=== PATIENT | female | born 1995 | race Caucasian/White ===

== ENCOUNTER 2016-08-15 16:09 | Emergency (ER) | payer OTHER ==
[2016-08-15 16:22] VITALS: BP 109/89; PULSE 104; RESP 17; TEMP 98.2; O2SAT 96
[2016-08-15] MEDS ORDERED: ONDANSETRON 4 MG/2 ML VIAL ONE (16:35)
--- NOTE | 2016-08-15 16:36 | CPEKG ---
Heart Rate: 94 RR Interval: 638 P-R Interval: 148 QRSD Interval: 76 QT Interval: 332 QTC Interval: 416 P Squires: 47 QRS Squires: 44 T Wave Squires: 26 EKG Severity - NORMAL ECG - EKG Impression: SINUS RHYTHM Electronically Signed By: Elana Munson 15-Aug-2016 20:44:33
--- NOTE | 2016-08-15 16:48 | EDPHY ---
H & P Time Seen by Provider: 08/15/16 16:30 HPI/ROS: CHIEF COMPLAINT: Syncope HISTORY OF PRESENT ILLNESS: Patient is a 20-year-old female with a history of dysrhythmia and numerous episodes of syncope who presents emergency department after having a syncopal episode around 3:15 p.m.. Patient states she has "fainted a couple dozen times." She currently has a loop recorder in place. She is followed by Dr. Kaye. She is scheduled to have an ablation on September 11. Patient states that she was in the grocery store when she fainted. She felt lightheaded and dizzy. Her mother found her on the ground. Post event she has no chest pain or shortness of breath. She is unsure if she struck her head but does have headache. She has no focal neurologic deficits. No visual change. No nausea or vomiting. REVIEW OF SYSTEMS: My complete review of systems is negative except as mentioned in the HPI. Past Medical/Surgical History: Includes dysrhythmia, syncope, asthma, depression, bipolar disorder, concussion Past surgical history: Implanted child monitor Social history: The patient does not smoke Smoking Status: Never smoked Physical Exam: Vitals noted. Tachycardia 104. GENERAL: Well-appearing, in no acute distress, alert. HEAD: No evidence of trauma. No hematoma. No laceration. EYES: PERRLA, EOMI, normal to inspection. ENT: Airway intact, no malocclusion, no hemotympanum, normal external examination. NECK: The trachea is midline. There is no crepitus. The C-spine is nontender. NEXUS criteria is negative (no midline tenderness, no distracting injury, no altered mental status, no recent alcohol use, no focal neurologic deficit). Patient has mild right lateral tenderness to palpation when she turns her head to the left. RESPIRATORY: Clear to auscultation bilaterally, no rales, rhonchi or wheezing. There is no crepitus or palpable rib fractures. CVS: Regular rate and rhythm, no rubs, murmurs, or gallops. ABDOMEN: Soft, nontender, nondistended, normal bowel sounds, no bruising or abrasions. Pelvis: Stable. No tenderness palpation. Hips full range of motion. BACK: Normal to inspection, no spinal tenderness, no spinal step off, no notable bruising or abrasions. SKIN: Normal color, warm, dry. No pallor or diaphoresis. EXTREMITIES: Right upper extremity: Patient has mild tenderness palpation over the dorsal of her right wrist. No deformity. No crepitus. Patient has mild posterior right shoulder tenderness palpation. No deformity. Neurovascular intact distally. Left upper extremity: Atraumatic. No visible signs of trauma. No tenderness palpation. Neurovascular intact distally. Right lower extremity: Atraumatic. No visible signs of trauma. No tenderness palpation. Neurovascular intact distally. Left lower extremity: Atraumatic. No visible signs of trauma. No tenderness palpation. Neurovascular intact distally. Atraumatic, neurovascularly intact distally in all extremities, pelvis is stable , hips with full range of motion, moves all extremities freely. NEURO/PSYCH: Higher functions: Alert and Oriented x3. Normal speech and cognition. Normal mood and affect. Cranial nerves: Normal as tested. Cerebellar: Normal as tested. Good finger to nose, good [id number], normal gait. Peripheral exam: Normal motor exam. Normal sensation. Constitutional: Initial Vital Signs Temperature (C) 36.8 C 08/15/16 16:19 Heart Rate 104 H 08/15/16 16:19 Respiratory Rate 17 08/15/16 16:19 Blood Pressure 109/89 H 08/15/16 16:19 O2 Sat (%) 96 08/15/16 16:19 O2 Delivery Mode Room Air Allergies/Adverse Reactions: adhesive Allergy (Verified 08/15/16 16:17) oxycodone HCl [From Percocet] Allergy (Verified 08/15/16 16:17) Penicillins Allergy (Verified 08/15/16 16:17) Home Medications: Medication Instructions Recorded Abilify 01/29/14 Wellbutrin Sr 01/29/14 LaMICtal 07/27/14 Ativan 08/15/16 Sonata 08/15/16 Medical Decision Making - Diagnostics Imaging Results: Imaging Impressions Shoulder X-Ray 08/15/16 16:51 Impression: There is no acute osseous abnormality. If there is progression of the patient's symptoms, MR imaging could be considered. RIGHT WRIST (4 Views, at 5:06 PM): Bone mineralization is preserved. There is no fracture, dislocation, marginal erosion, or soft tissue calcification. The navicular is intact. The radiocarpal and intercarpal alignments are maintained. The pronator fat pad is not displaced. Impression: There is no acute osseous abnormality identified. If there is high clinical concern regarding an occult carpal fracture, conservative management and short-term repeat radiographic follow-up in 7-14 days could be considered. Wrist X-Ray 08/15/16 16:51 Impression: There is no acute osseous abnormality. If there is progression of the patient's symptoms, MR imaging could be considered. RIGHT WRIST (4 Views, at 5:06 PM): Bone mineralization is preserved. There is no fracture, dislocation, marginal erosion, or soft tissue calcification. The navicular is intact. The radiocarpal and intercarpal alignments are maintained. The pronator fat pad is not displaced. Impression: There is no acute osseous abnormality identified. If there is high clinical concern regarding an occult carpal fracture, conservative management and short-term repeat radiographic follow-up in 7-14 days could be considered. ED Course/Re-evaluation: In the emergency department I discussed possible etiologies with the patient. I answered all her questions. She states the loop recorder is on file at [facility]. An IV was placed. Laboratory studies were ordered. Patient had EKG. I do not feel the patient needs a head CT at this time. She has no hematoma. She has a nonfocal neuro exam. She has had numerous CTs in the past. EKG shows normal sinus rhythm, normal rate, normal axis, normal intervals. There are no ST or T-wave abnormalities. EKG is normal as interpreted by me. I paged [facility] to evaluate her loop monitor and inform her of her syncopal episode. I discussed the case with [facility]. They stated that she will need to have her loop recorder interrogated locally. [employer] was contacted. I discussed the plan with the patient. No loop recordings noted with interrogation. I discussed the case with Dr. Colvin. He reviewed the case and pt's record. He states she has had syncope x 2.5 yrs. Recommends discharge and f/u with Dr. Kaye. Pt given warnings prior to leaving. Will return with worsening symptoms. Differential Diagnosis: My differential includes but is not limited to dysrhythmia, V-tach, ACS, acute ND, electrolyte abnormality, sugar abnormality, concussion, subarachnoid hemorrhage, subdural hematoma, epidural hematoma - Data Points Laboratory Results: Laboratory Results 08/15/16 16:40 08/15/16 16:40 08/15/16 08/15/16 08/15/16 16:40 16:40 16:40 WBC 8.44 10^3/uL 10^3/uL (3.80-9.50) RBC 5.00 10^6/uL 10^6/uL (4.18-5.33) Hgb 15.2 g/dL g/dL (12.6-16.3) Hct 44.4 % % (38.0-47.0) MCV 88.8 fL fL (81.5-99.8) MCH 30.4 pg pg (27.9-34.1) MCHC 34.2 g/dL g/dL (32.4-36.7) RDW 11.7 % % (11.5-15.2) Plt Count 291 10^3/uL 10^3/uL (150-400) MPV 9.8 fL fL (8.7-11.7) Neut % (Auto) 68.5 % % (39.3-74.2) Lymph % (Auto) 23.8 % % (15.0-45.0) [place] % (Auto) 6.2 % % (4.5-13.0) Eos % (Auto) 0.6 % % (0.6-7.6) Baso % (Auto) 0.4 % % (0.3-1.7) Nucleat RBC Rel Count 0.0 % % (0.0-0.2) Absolute Neuts (auto) 5.79 10^3/uL 10^3/uL (1.70-6.50) Absolute Lymphs (auto) 2.01 10^3/uL 10^3/uL (1.00-3.00) Absolute Monos (auto) 0.52 10^3/uL 10^3/uL (0.30-0.80) Absolute Eos (auto) 0.05 10^3/uL 10^3/uL (0.03-0.40) Absolute Basos (auto) 0.03 10^3/uL 10^3/uL (0.02-0.10) Absolute Nucleated RBC 0.00 10^3/uL 10^3/uL (0-0.01) Immature Gran % 0.5 % % (0.0-1.1) Immature Gran # 0.04 10^3/uL 10^3/uL (0.00-0.10) Sodium 141 mEq/L mEq/L (134-144) Potassium 3.8 mEq/L mEq/L (3.5-5.2) Chloride 105 mEq/L mEq/L (97-110) Carbon Dioxide 23 mEq/l mEq/l (22-31) Anion Gap 13 mEq/L mEq/L (8-16) BUN 11 mg/dL mg/dL (7-23) Creatinine 0.8 mg/dL mg/dL (0.6-1.0) Estimated GFR > 60 Glucose 109 mg/dL H mg/dL (70-100) Calcium 10.2 mg/dL mg/dL (8.5-10.4) Troponin I < 0.012 ng/mL ng/mL (0-0.034) Beta HCG, Qual NEGATIVE Departure - Departure Disposition: Home, Routine, Self-Care Clinical Impression: Syncope Qualifiers: Syncope type: unspecified Qualified Code(s): R55 - Syncope and collapse Condition: Good Instructions: Syncope (ED) Additional Instructions: Return with increasing fatigue, dizziness, lightheadedness, fainting or any other concerns. Keep your appointment to follow up with Dr. Kaye. Referrals: Maya Craft MD [Primary Care Provider] - 1-2 days without fail Moises Kaye MD [Medical Doctor] - 2-3 days, if not improved
[2016-08-15 17:01] LABS: % IMMATURE GRANULYOCYTES 0.5 % (0.0-1.1); ABSOLUTE IMMATURE GRANULOCYTES 0.04 10^3/uL (0.00-0.10); ADD DIFF? NO; ADD MORPH? NO; ADD SCAN? NO; ATYPICAL LYMPHOCYTE FLAG 30 (0-99); FRAGMENT RBC FLAG 0 (0-99); HEMATOCRIT 44.4 % (38.0-47.0); HEMOGLOBIN 15.2 g/dL (12.6-16.3); LEFT SHIFT FLG 0 (0-99); LIPEMIA HEMOLYSIS FLAG 90 (0-99); MEAN CELL HEMOGLOBIN 30.4 pg (27.9-34.1); MEAN CELL HEMOGLOBIN CONCENTR. 34.2 g/dL (32.4-36.7); MEAN CELL VOLUME 88.8 fL (81.5-99.8); MEAN PLATELET VOLUME 9.8 fL (8.7-11.7); PLATELET CLUMPS FLAG 0 (0-99); PLATELET COUNT 291 10^3/uL (150-400); RED CELL DISTRIBUTION WIDTH 11.7 % (11.5-15.2)
[2016-08-15 17:13] LABS: ANION GAP 13 mEq/L (8-16); CALCIUM 10.2 mg/dL (8.5-10.4); CARBON DIOXIDE 23 mEq/l (22-31); CHLORIDE 105 mEq/L (97-110); CREATININE 0.8 mg/dL (0.6-1.0); GLOMERULAR FILTRATION RATE > 60; GLUCOSE 109 mg/dL (70-100); POTASSIUM 3.8 mEq/L (3.5-5.2); SODIUM 141 mEq/L (134-144)
[2016-08-15 17:25] LABS: TROPONIN I < 0.012 ng/mL (0-0.034)
== END 2016-08-15 18:42 | disposition home or self-care (01) ==
DX: R55 Syncope and collapse (principal)
CPT/HCPCS: J2405

== ENCOUNTER → 2016-09-11 | Day surgery (SDC) | payer OTHER ==
[~2016-09-11] MED LIST: ACETAMINOPHEN 325 MG TAB PO PRN; ATROPINE SULFATE 1 MG/10 ML SYR ONE; BUPIVACAINE 0.5% 30 ML SDV ONE; HEPARIN 10,000 UNIT/10 ML MDV ONE; ISOPROTERENOL HCL/D5W 0.2 MG/50 ML BAG IV ONE; LIDOCAINE 1% 300 MG/30 ML SDV ONE; MIDAZOLAM 2 MG/2 ML VIAL IVP ONE; MIDAZOLAM 2 MG/2 ML VIAL ONE; NS 1,000 ML IV ONE; ONDANSETRON 4 MG/2 ML VIAL IVP PRN; PROPOFOL 200 MG/20 ML VIAL ONE; ROCURONIUM 100 MG/10 ML VIAL ONE; fentaNYL 100 MCG/2 ML INJ ONE
--- NOTE | 2016-09-11 07:16 | CPEKG ---
Heart Rate: 84 RR Interval: 714 P-R Interval: 144 QRSD Interval: 74 QT Interval: 360 QTC Interval: 426 P [place]: 54 QRS [place]: 53 T Wave [place]: 25 EKG Severity - NORMAL ECG - EKG Impression: SINUS RHYTHM Electronically Signed By: Moises Kaye 11-Sep-2016 08:03:15
[2016-09-11 07:36] LABS: % IMMATURE GRANULYOCYTES 0.3 % (0.0-1.1); ABSOLUTE IMMATURE GRANULOCYTES 0.02 10^3/uL (0.00-0.10); ADD DIFF? NO; ADD MORPH? NO; ADD SCAN? NO; ATYPICAL LYMPHOCYTE FLAG 20 (0-99); FRAGMENT RBC FLAG 0 (0-99); HEMATOCRIT 41.2 % (38.0-47.0); LEFT SHIFT FLG 0 (0-99); LIPEMIA HEMOLYSIS FLAG 90 (0-99); MEAN CELL HEMOGLOBIN 30.5 pg (27.9-34.1); MEAN CELL VOLUME 89.8 fL (81.5-99.8); MEAN PLATELET VOLUME 9.7 fL (8.7-11.7); PLATELET CLUMPS FLAG 10 (0-99); PLATELET COUNT 246 10^3/uL (150-400); RED BLOOD CELL COUNT 4.59 10^6/uL (4.18-5.33); RED CELL DISTRIBUTION WIDTH 11.6 % (11.5-15.2)
[2016-09-11 07:49] LABS: APTT 29.9 SEC (23.0-38.0); INR 1.16 (0.83-1.16); PROTIME(PATIENT) 14.8 SEC (12.0-15.0)
[2016-09-11 07:52] LABS: ANION GAP 13 mEq/L (8-16); CALCIUM 9.4 mg/dL (8.5-10.4); CARBON DIOXIDE 22 mEq/l (22-31); CHLORIDE 105 mEq/L (97-110); GLOMERULAR FILTRATION RATE > 60; GLUCOSE 89 mg/dL (70-100); POTASSIUM 3.7 mEq/L (3.5-5.2); SODIUM 140 mEq/L (134-144)
--- NOTE | 2016-09-11 07:52 | PDANEPAE ---
ANE History of Present Illness paroxysmal SVT causing fainting/lightheadedness ANE Past Medical History - Cardiovascular History Hx Hypertension: No Hx Arrhythmias: No Hx Coronary Artery / Peripheral Vascular Disease: No Hx CHF / Valvular Disease: No - Pulmonary History Hx COPD: No Hx Asthma/Reactive Airway Disease: No Hx Recent Upper Respiratory Infection: No Hx Oxygen in Use at Home: No Hx Sleep Apnea: No Pulmonary History Comment: COLD PART April. EXRCISE INDUCED ASTHMA NONE SINCE MOVING HER FROM [place] 8 MONTHS. - Neurologic History Hx Cerebrovascular Accident: No Hx Seizures: No Hx Dementia: No - Endocrine History Hx Diabetes: No Endocrine History Comment: NATHAN - Renal History Hx Renal Disorders: No - Liver History Hx Hepatic Disorders: No - Neurological & Psychiatric Hx Hx Neurological and Psychiatric Disorders: Yes Neurological / Psychiatric History Comment: BIPOLAR/DEPRESSION. HEADACHES WITH MENSES. CONCUSSION 2009 - Cancer History Hx Cancer: No - Congenital Disorder History Hx Congenital Disorders: No - GI History Hx Gastrointestinal Disorders: No - Chronic Pain History Chronic Pain: No - Surgical History Prior Surgeries: DENTAL EXT IN OFFICE BECAME COMBATIVE ANE Review of Systems Review of systems is: negative - Exercise capacity Exercise capacity: >=4 METS ANE Patient History - Allergies Allergies/Adverse Reactions: adhesive Allergy (Verified 08/15/16 16:17) oxycodone HCl [From Percocet] Allergy (Verified 08/15/16 16:17) Penicillins Allergy (Verified 08/15/16 16:17) - Home Medications Home Medications: Abilify 01/29/14 [Last Taken Unknown] Wellbutrin Sr 01/29/14 [Last Taken Unknown] LaMICtal 07/27/14 [Last Taken Unknown] Ativan 08/15/16 [Last Taken Unknown] Sonata 08/15/16 [Last Taken Unknown] - Anes Hx Anes Hx: no prior problems - Smoking Hx Smoking Status: Former smoker - Family Anes Hx Family Anes Hx: none ANE Labs/Vital Signs - Labs Result Diagrams: 09/11/16 07:22 09/11/16 07:22 - Vital Signs Height: 160 cm Weight: 61.2 kg ANE Physical Exam - Airway Neck exam: FROM Mallampati Score: Class 3 Mouth exam: small mouth opening (2/2 TMJ) - Pulmonary Pulmonary: no respiratory distress - Cardiovascular Cardiovascular: regular rate and rhythym - ASA Status ASA Status: II ANE Anesthesia Plan Anesthesia Plan: general endotracheal anesthesia
--- NOTE | 2016-09-11 10:26 | EPPROC ---
Electrophysiology Procedure Note: DIAGNOSTIC ELECTROPHYSIOLOGIC STUDY INDICATION: Syncope HR of up to 200 bpm noted on LINQ monitor PROCEDURE: Catheters & Anesthesia: The patient arrived in the Electrophysiology Laboratory in the fasting state. The right clavicular region, right groin, & left groin area were prepped & draped in the usual sterile manner. Anesthesiologist administered general anesthesia. Appropriate non-invasive blood pressure, pulse oximetry & end- tidal CO2 monitoring was established. All catheters were placed percutaneously using the modified Seldinger technique , and advanced into position under fluoroscopic guidance. One #6 [place]an hexapolar non-deflectable electrode catheter was inserted into the right atrial appendage via the left femoral vein (2mm spacing; except the proximal ring which was 25cm from the tip used for unipolar recordings). One #7 [place]an deflectable octapolar electrode catheter was advanced to the His-bundle position via the right femoral vein (2mm spacing One #7 [place] deflectable catheter with 10 pairs of electrodes was placed via the left femoral vein into the coronary sinus. Programmed stimulation was performed from the right atrium, right ventricle and coronary sinus (left atrium). Parahisian pacing demonstrated VA block. Heparin was administere. No sustained reentrant tachycardia was induced during programmed stimulation at baseline or during graded doses of isoproterenol up to 4 mcg/min. The catheters were removed. The patient was transferred to the cardiovascular holding area in stable condition. Vascular access sheaths were removed in the holding area. There were no apparent complications. Results: A. Spontaneous Intervals: SCL 630 ms AH 55 ms HV 40 ms B. Antegrade AV rosendo function (decremental pacing) FPERP 320 ms WBB CL 310 ms C. Retrograde AV rosendo function (decremental pacing) VA block CONCLUSIONS 1. Normal sinus and AV node function. 2. No evidence of accesory AV pathway presence. 3. No sustained arrhythmias induced. 4. No apparent complications. Patient Problems: Problems Problem Status Onset Syncope Acute
--- NOTE | 2016-09-11 10:45 | POSTANESTH ---
Post Anesthetic Evaluation Cardiovascular Status: Normal, Stable Respiratory Status: Normal, Stable Level of Consciousness/Mental Status: Can Participate in Eval Pain Control: Adequate, Prn Tx Ordered Nausea/Vomiting Control: Adequate, Prn Tx Ordered Complications Possibly Related to Anesthesia: None Noted
--- NOTE | 2016-09-11 12:11 | CPEKG ---
Heart Rate: 67 RR Interval: 896 P-R Interval: 152 QRSD Interval: 72 QT Interval: 396 QTC Interval: 418 P [place]: 43 QRS [place]: 58 T Wave [place]: 52 EKG Severity - NORMAL ECG - EKG Impression: SINUS RHYTHM Electronically Signed By: Moises Kaye 11-Sep-2016 16:51:36
== END | disposition home or self-care (01) ==
LOC: FCATH 06:56
PROVIDERS: ATTEND Internal Medicine Cardiovascular Disease
PROC: 02H63MZ Insertion of Cardiac Lead into Right Atrium, Percutaneous Approach (ICD-10-PCS; principal; 2016-09-11)
PROC: 5A1213Z Performance of Cardiac Pacing, Intermittent (ICD-10-PCS; principal; 2016-09-11)
PROC: 4A023FZ Measurement of Cardiac Rhythm, Percutaneous Approach (ICD-10-PCS; principal; 2016-09-11)
DX: I47.1 Supraventricular tachycardia (principal)
CPT/HCPCS: 93005; 93620; 93621; 93623; C1730; C1731; J0461; J1644; J2250; J2704; J3010

== ENCOUNTER 2016-09-15 19:57 | Emergency (ER) | payer OTHER ==
--- NOTE | 2016-09-15 20:18 | EDPHY ---
H & P Stated Complaint: bilateral groin bruising/pain, worse of L, negative cardiac ablation 09/11 - Personal History LMP (Females 10-55): 8-14 Days Ago Current Tetanus/Diphtheria Vaccine: Yes Tetanus Vaccine Date: 2013 - Medical/Surgical History Hx Asthma: Yes Hx Chronic Respiratory Disease: No Hx Diabetes: No Hx Cardiac Disease: Yes Hx Renal Disease: No Hx Cirrhosis: No Hx Alcoholism: No Hx HIV/AIDS: No Hx Splenectomy or Spleen Trauma: No Other PMH: negative cardiac ablation on 09/11/16. Excercise induced asthma. depression. bipolar. "FAINTING SPELLS"/arrythmia/implanted cardiac cath technologist - Social History Smoking Status: Former smoker Time Seen by Provider: 09/15/16 20:18 Constitutional: Initial Vital Signs Temperature (C) 36.8 C 09/15/16 20:08 Heart Rate 80 09/15/16 20:08 Respiratory Rate 16 09/15/16 20:08 Blood Pressure 103/67 09/15/16 20:08 O2 Sat (%) 95 09/15/16 20:08 O2 Delivery Mode Room Air Allergies/Adverse Reactions: adhesive Allergy (Verified 08/15/16 16:17) oxycodone HCl [From Percocet] Allergy (Verified 08/15/16 16:17) Penicillins Allergy (Verified 08/15/16 16:17) Home Medications: Medication Instructions Recorded ARIPiprazole [Abilify 2 mg (*)] 8 mg PO HS 01/29/14 buPROPion XL [Wellbutrin Xl] 150 mg PO DAILY 01/29/14 lamoTRIgine [LamICTAL] 75 mg PO HS 07/27/14 LORazepam [Ativan (*)] 0.5 mg PO DAILY PRN 08/15/16 Zaleplon [Sonata] 10 mg PO HS PRN 08/15/16 Metoprolol Tartrate 12.5 mg PO BID 09/11/16 Medical Decision Making ED Course/Re-evaluation: CHIEF COMPLAINT: Pain at surgical site HISTORY OF PRESENT ILLNESS: The patient is a 20 y/o female complaining of left inguinal and lower abdominal pain following an unsuccessful cardiac ablation attempt on 09/11/16. Her pain was initially mild, but became acutely severe over the last 2 hours and is located directly over her left inguinal incision site. She denies fever, vomiting, dyspnea, chest pain, leg pain or swelling, or other worsening of condition. REVIEW OF SYSTEMS: A 10 point review of systems was performed and is negative with the exception of the elements mentioned in the history of present illness. PHYSICAL EXAM: HR, BP, O2 Sat, RR. Temp noted General Appearance: Alert, well hydrated, appropriate, and non-toxic appearing. Head: Atraumatic without scalp tenderness or obvious injury Eyes: Pupils equal, round, reactive to light and accommodation, EOMI, no trauma , no injection. Nose: Atraumatic, no rhinorrhea, clear. Throat: There is no erythema or exudates, no lesions, normal tonsils, mucus membranes moist. Neck: Supple, nontender, no lymphadenopathy. Respiratory: No retractions, no distress, no wheezes, and no accessory muscle use. Lungs are clear to auscultation bilaterally. Cardiovascular: Regular rate and rhythm, no murmurs, rubs, or gallops. Good capillary refill all extremities. Gastrointestinal: Abdomen is soft, mild LLQ tenderness, non-distended, no masses, no rebound, no guarding, no peritoneal signs. Musculoskeletal: Normal active ROM of all extremities, atraumatic. Neurological: Alert, appropriate, and interactive. Nonfocal neuro exam. Skin: Clean, dry, and intact surgical site around left inguinal region with moderate point tenderness and bruising. No rashes, good turgor, no nodules on palpation. Past medical history: SVT Past surgical history: unsuccessful cardiac ablation 09/11/16 Family history: noncontributory Social history: Mother at bedside DIFFERENTIAL DIAGNOSIS: The differential diagnosis for the patient's abdominal pain included but was not limited to post-op complication, retroperitoneal bleed , pseudoaneurysm, ovarian cyst, pelvic inflammatory disease, ovarian torsion, urinary tract infection, ectopic , cholecystitis, and appendicitis. MEDICAL DECISION MAKING: This is a 20 y/o female with a history of SVT who presents with post-op left inguinal pain at the site of her catheterization. No other symptoms or evidence of systemic illness. Plan for US to rule out pseudoaneurysm. Otherwise will be discharged home with script for Vicodin and normal post-op follow up. 2100: Patient care signed out to Dr. Lees pending abdominal US results. ( Rodríguez Lutz) [id number]: I did re-evaluate this patient this time she is resting comfortably no acute distress. Pain is controlled at this time. No fever. Her groin site does not appear infected. I did evaluate her she has a warm lower extremity. There is no redness or pus. The ultrasound was called to me by Dr. Lopez There is no pseudoaneurysm there is no fluid collection there is no significant hematoma. I will allow the patient to go home. (YoanaNikhil) - Data Points Medications Given: Discontinued Medications Hydrocodone Bitart/Acetaminophen (Sarepta 5/325) 1 tab PO EDNOW ONE Stop: 09/15/16 22:30 Last Admin: 09/15/16 22:40 Dose: 1 tab Ibuprofen (Motrin) 600 mg PO EDNOW ONE Stop: 09/15/16 20:42 Last Admin: 09/15/16 20:51 Dose: 600 mg Departure - Departure Disposition: Home, Routine, Self-Care Clinical Impression: Post-op pain Condition: Good Instructions: Hydrocodone/Acetaminophen (By mouth) Additional Instructions: 1. Take 600mg ibuprofen every 6-8 hours as needed for pain. 2. Take Vicodin as prescribed when needed for severe pain not controlled with ibuprofen. 3. Follow up with your thermal engineer as planned. 4. Return to the ED for severe pain, fever, redness or warmth at incision site, or other worsening of condition. Referrals: Maya Craft MD [Primary Care Provider] - As per Instructions Report Scribed for: Rodríguez Lutz Report Scribed by: Ceci Colunga Date of Report: 09/15/16 Time of Report: 21:03
[2016-09-15] MEDS ORDERED: IBUPROFEN 600 MG TAB PO ONE (20:41)
[2016-09-15] MEDS ORDERED: HYDROCOD/APAP 5/325 PREPACK#6 BTL TAKEHOME ONE ×2 (21:09→23:17)
[2016-09-15] MEDS ORDERED: HYDROCODONE/APAP 5/325 TAB PO ONE (22:29)
[2016-09-15 23:50] VITALS: BP 84/59; PULSE 72; RESP 18; TEMP 98.1; O2SAT 97
== END 2016-09-15 23:52 | disposition home or self-care (01) ==
DX: G89.18 Other acute postprocedural pain (principal); J45.909 Unspecified asthma, uncomplicated; Z87.891 Personal history of nicotine dependence

== ENCOUNTER 2016-11-29 22:28 | Emergency (ER) | payer OTHER ==
[2016-11-29 22:44] VITALS: RESP 18
[2016-11-29] MEDS ORDERED: DEXAMETHASONE 4 MG TAB PO ONE (23:20)
[2016-11-29] MEDS ORDERED: ONDANSETRON DISINTEGRATING 4 MG TAB PO ONE (23:20)
--- NOTE | 2016-11-29 23:24 | EDPHY ---
H & P Stated Complaint: SORE THROAT AND NAUSEA VOMITTING Time Seen by Provider: 11/29/16 23:21 HPI/ROS: HPI: This is a 21-year-old female who presents with Chief Complaint: Sore throat Location: Throat Quality: Sore Duration: 2 days Signs and Symptoms: No fever, no chills, no body aches, + sore throat,+ nausea , + vomiting after coughing, no abdominal pain, no vaginal discharge, no vaginal bleeding, no wheezing Timing: Constant Severity: Moderate Context: Patient presents with a constellation of symptoms most notably is her sore throat and hoarse voice for the last 2 days. She reports that when she tries to drink water she vomits it up but denies any abdominal pain/pelvic pain/ vaginal discharge/vaginal bleeding. Patient has an IUD and last menstrual period was approximately 3 weeks ago. She denies dysuria. She has had a poor appetite and decreased energy. She has not tried any [id number] medications Modifying Factors: Fluids. Comment: ROS: see HPI Constitutional: No fever, no chills, no weight loss Eyes: No blurred vision Respiratory: No shortness of breath, no cough Cardiovascular: No chest pain Gastrointestinal: + nausea, + vomiting, no diarrhea Genitourinary: No dysuria Extremities: No myalgias Neurologic: No weakness, no numbness Skin: No rashes Hematologic: No bruising, no bleeding MEDICAL/SURGICAL/SOCIAL HISTORY: Medical history: negative cardiac ablation on 09/11/16 Excercise induced asthma depression bipolar "FAINTING SPELLS"/arrythmia Surgical history: implanted youth nutritional monitor Social history: student CONSTITUTIONAL: Well-developed well-nourished young adult white female, awake and alert, no obvious distress HEENT: Atraumatic and normocephalic, PERRL, EOMI. Tympanic membranes clear. Oropharynx clear, uvula midline, tonsillar hypertrophy, voice is hoarse, no exudate and moist pink mucosa. Airway patent. No lymphadenopathy. No meningismus. Cardiovascular: Normal S1/S2, regular rate, regular rhythm, without murmur rub or gallop. PULMONARY/CHEST: Symmetrical and nontender. Clear to auscultation bilaterally. Good air movement. No accessory muscle usage. ABDOMEN: Soft, nondistended, nontender, no rebound, no guarding, no peritoneal signs, no masses or organomegaly. No CVAT. EXTREMITIES: 2/2 pulses, no deformities, no clubbing, no cyanosis or edema. NEUROLOGICAL: no focal neuro deficits. GCS 15. SKIN: Warm and dry, no erythema. no rash. Good capillary refill. Source: Patient Exam Limitations: No limitations - Personal History LMP (Females 10-55): 15-21 Days Ago Current Tetanus/Diphtheria Vaccine: Yes Current Tetanus Diphtheria and Acellular Pertussis (TDAP): Yes Tetanus Vaccine Date: 2013 - Medical/Surgical History Hx Asthma: Yes Hx Chronic Respiratory Disease: No Hx Diabetes: No Hx Cardiac Disease: Yes Hx Renal Disease: No Hx Cirrhosis: No Hx Alcoholism: No Hx HIV/AIDS: No Hx Splenectomy or Spleen Trauma: No Other PMH: negative cardiac ablation on 09/11/16. Excercise induced asthma. depression. bipolar. "FAINTING SPELLS"/arrythmia/implanted youth nutritional monitor - Social History Smoking Status: Former smoker Constitutional: Initial Vital Signs Temperature (C) 36.6 C 11/29/16 22:43 Heart Rate 78 11/29/16 22:43 Respiratory Rate 18 11/29/16 22:43 Blood Pressure 112/71 11/29/16 22:43 O2 Sat (%) 96 11/29/16 22:43 O2 Delivery Mode Room Air Allergies/Adverse Reactions: adhesive Allergy (Verified 11/29/16 22:44) oxycodone HCl [From Percocet] Allergy (Verified 11/29/16 22:44) Penicillins Allergy (Verified 11/29/16 22:44) Home Medications: Medication Instructions Recorded ARIPiprazole [Abilify 2 mg (*)] 8 mg PO HS 01/29/14 buPROPion XL [Wellbutrin Xl] 150 mg PO DAILY 01/29/14 lamoTRIgine [LamICTAL] 75 mg PO HS 07/27/14 LORazepam [Ativan (*)] 0.5 mg PO DAILY PRN 08/15/16 Zaleplon [Sonata] 10 mg PO HS PRN 08/15/16 Ondansetron Odt [Zofran Odt 4 mg 4 mg PO Q4 PRN #12 tab 11/29/16 (*)] Medical Decision Making ED Course/Re-evaluation: Strep test oral medications ordered Abdominal exam is benign and no imaging is indicated. Afebrile No signs of tonsillar abscess/airway compromise/hypoxia/wheezing/sinusitis/ meningitis Given p.o. Decadron and p.o. Zofran. Strep is negative Differential Diagnosis: Differential diagnosis includes but is not limited to upper respiratory infection, pharyngitis, strep pharyngitis, influenza, mononucleosis. - Data Points Laboratory Results: 11/29/16 11/29/16 Unknown 23:18 Group A Strep Screen NEGATIVE (NEGATIVE) Group A Strep DNA Pending Departure - Departure Disposition: Home, Routine, Self-Care Clinical Impression: Viral syndrome Condition: Good Instructions: Viral Syndrome (ED) Additional Instructions: Your strep test was negative today. It appears you have a viral illness. Please drink plenty of fluids to prevent dehydration. Eat a bland diet over the next 48 hours and advance as tolerated. Rest as much as possible. Referrals: Maya Craft MD [Primary Care Provider] - As per Instructions Prescriptions: Ondansetron Odt [Zofran Odt 4 mg (*)] 4 mg PO Q4 PRN #12 tab PRN Reason: Nausea/Vomiting, Use 1st
[2016-11-29] MEDS ORDERED: ONDANSETRON 4MG PREPACK#2 BTL TAKEHOME ONE (23:25)
[2016-11-30 00:26] VITALS: BP 100/67; PULSE 66; TEMP 98.1; O2SAT 95
== END 2016-11-30 00:26 | disposition home or self-care (01) ==
DX: B34.9 Viral infection, unspecified (principal); J45.909 Unspecified asthma, uncomplicated; Z87.891 Personal history of nicotine dependence

== ENCOUNTER 2016-12-20 07:14 | Day surgery (SDC) | payer OTHER ==
[2016-12-20] MEDS ORDERED: NS 1,000 ML IV ONE (07:16)
--- NOTE | 2016-12-20 07:34 | CPEKG ---
Heart Rate: 62 RR Interval: 968 P-R Interval: 136 QRSD Interval: 76 QT Interval: 388 QTC Interval: 394 P [place]: -29 QRS [place]: 45 T Wave [place]: 43 EKG Severity - NORMAL ECG - EKG Impression: SINUS RHYTHM Electronically Signed By: Moises Kaye 20-Dec-2016 17:17:18
[2016-12-20 07:42] LABS: % IMMATURE GRANULYOCYTES 0.3 % (0.0-1.1); ABSOLUTE IMMATURE GRANULOCYTES 0.02 10^3/uL (0.00-0.10); ADD DIFF? NO; ADD MORPH? NO; ADD SCAN? NO; ATYPICAL LYMPHOCYTE FLAG 20 (0-99); FRAGMENT RBC FLAG 0 (0-99); HEMATOCRIT 43.6 % (38.0-47.0); LEFT SHIFT FLG 0 (0-99); LIPEMIA HEMOLYSIS FLAG 90 (0-99); MEAN CELL HEMOGLOBIN CONCENTR. 34.4 g/dL (32.4-36.7); MEAN CELL VOLUME 90.1 fL (81.5-99.8); MEAN PLATELET VOLUME 9.5 fL (8.7-11.7); PLATELET CLUMPS FLAG 0 (0-99); PLATELET COUNT 245 10^3/uL (150-400); RED BLOOD CELL COUNT 4.84 10^6/uL (4.18-5.33); RED CELL DISTRIBUTION WIDTH 11.8 % (11.5-15.2)
[2016-12-20 07:54] LABS: INR 1.12 (0.83-1.16); PROTIME(PATIENT) 14.3 SEC (12.0-15.0)
[2016-12-20 07:55] LABS: APTT 29.2 SEC (23.0-38.0)
[2016-12-20 08:02] LABS: ANION GAP 11 mEq/L (8-16); CALCIUM 9.6 mg/dL (8.5-10.4); CARBON DIOXIDE 21 mEq/l (22-31); CHLORIDE 107 mEq/L (97-110); CREATININE 0.9 mg/dL (0.6-1.0); GLOMERULAR FILTRATION RATE > 60; GLUCOSE 83 mg/dL (70-100); MAGNESIUM 1.9 mg/dL (1.6-2.3); POTASSIUM 3.9 mEq/L (3.5-5.2); SODIUM 139 mEq/L (134-144)
[2016-12-20] MEDS ORDERED: LIDOCAINE 1% 300 MG/30 ML SDV ONE (08:07)
[2016-12-20] MEDS ORDERED: BUPIVACAINE 0.5% 30 ML SDV ONE (08:08)
[2016-12-20] MEDS ORDERED: ISOPROTERENOL HCL/D5W 0.2 MG/50 ML BAG IV ONE (08:08)
[2016-12-20] MEDS ORDERED: HEPARIN 10,000 UNIT/10 ML MDV ONE (08:08)
--- NOTE | 2016-12-20 08:08 | PDPROPOC ---
Sedation Plan of Care ASA Classification: ASA 1 Planned drugs: fentanyl, midazolam Mallampati Score: Class 1 Mallampati Reference Image: Patient passed 3-3-2 rule?: Yes
--- NOTE | 2016-12-20 08:08 | PDHPUP ---
History & Physical Update H&P update statement: This history and physical update is based on an assessment of the patient which was completed after admission or registration (within 24 hours), but prior to the surgery/procedure.
[2016-12-20] MEDS ORDERED: MIDAZOLAM 2 MG/2 ML VIAL ONE (10:25)
[2016-12-20] MEDS ORDERED: IBUPROFEN 200 MG TAB PO PRN (10:34)
[2016-12-20] MEDS ORDERED: ZALEPLON 10 MG PO PRN (10:34)
[2016-12-20] MEDS ORDERED: LORazepam 0.5 MG TAB PO PRN (10:34)
[2016-12-20] MEDS ORDERED: NON-FORMULARY NEW DRUG (Levonorgestrel [Mirena] 1 EACH) IY SCH (10:45)
--- NOTE | 2016-12-20 18:40 | EPPROC ---
Electrophysiology Procedure Note: DIAGNOSTIC ELECTROPHYSIOLOGIC STUDY PROCEDURE: Catheters & Anesthesia: The patient arrived in the Electrophysiology Laboratory in the fasting state. The right clavicular region, right groin, & left groin area were prepped & draped in the usual sterile manner. No sedation was administered, procedure done with local anesthetic only. Appropriate non-invasive blood pressure, pulse oximetry & end-tidal CO2 monitoring was established. All catheters were placed percutaneously using the modified Seldinger technique , and advanced into position under fluoroscopic guidance. One #7 [place] deflectable octapolar electrode catheter was advanced to the His-bundle position via the left femoral vein (2mm spacing). One #7 [place] deflectable catheter with 10 pairs of electrodes was placed via the right femoral vein into the coronary sinus. Programmed stimulation was performed from the right atrium, right ventricle and coronary sinus (left atrium). Parahisian pacing demonstrated VA block. There was no ventricular preexcitation. SCL 740 ms AH 65 ms HV 40 ms AV node WBB 310 ms, no antegrade slow pathway Retrograde AV node VA block No sustained reentrant tachycardia was induced during programmed stimulation at baseline or during graded doses of isoproterenol up to 4 mcg/min. The catheters were removed. The patient was transferred to the cardiovascular holding area in stable condition. There were no apparent complications. CONCLUSIONS 1. Normal sinus and AV node function. 2. No evidence of accesory AV pathway presence. 3. No sustained arrhythmias induced. 4. No apparent complications. RECOMMENDATIONS: Start ivabradine for inappropriate sinus tachycardia. d.w. patient, boyfriend and mother. Patient wants to think about it, will call my nurse if she decides to start Patient Problems: Problems Problem Status Onset Syncope Acute
[2016-12-20] MEDS ORDERED: ARIPiprazole 2 MG TAB PO SCH (21:00)
[2016-12-20] MEDS ORDERED: lamoTRIgine 25 MG TAB PO SCH (21:00)
[2016-12-21] MEDS ORDERED: buPROPion XL 150 MG TAB PO SCH (09:00)
== END 2016-12-20 16:10 | disposition home or self-care (01) ==
LOC: FCATH 07:14
PROVIDERS: ATTEND Internal Medicine Cardiovascular Disease
PROC: 4A023FZ Measurement of Cardiac Rhythm, Percutaneous Approach (ICD-10-PCS; principal; 2016-12-20)
PROC: 3E033KZ Introduction of Other Diagnostic Substance into Peripheral Vein, Percutaneous Approach (ICD-10-PCS; principal; 2016-12-20)
DX: R00.2 Palpitations (principal); R00.0 Tachycardia, unspecified; R55 Syncope and collapse
CPT/HCPCS: C1731; J1644; J2250

== ENCOUNTER 2017-01-03 22:04 | Emergency (ER) | payer OTHER ==
[2017-01-03 22:14] VITALS: RESP 18; O2SAT 94
--- NOTE | 2017-01-03 22:28 | CPEKG ---
Heart Rate: 101 RR Interval: 594 P-R Interval: 140 QRSD Interval: 72 QT Interval: 316 QTC Interval: 410 P [place]: 53 QRS [place]: 61 T Wave [place]: 0 EKG Severity - BORDERLINE ECG - EKG Impression: SINUS TACHYCARDIA EKG Impression: BORDERLINE T ABNORMALITIES, ANTERIOR LEADS Electronically Signed By: Clive Davis 04-Jan-2017 06:38:30
--- NOTE | 2017-01-03 22:40 | EDPHY ---
H & P Stated Complaint: FEVER SOB, CHEST PAIN S/P SURGERY? 2 WKS AGO Time Seen by Provider: 01/03/17 22:25 HPI/ROS: Chief Complaint: Fever, body aches, nausea vomiting HPI: 21-year-old woman started having for fever, nausea, vomiting and body aches today 10 o'clock this morning. She did take a Zofran. She did have some associated chest tightness and shortness of breath, but feels that this may have been associated with some anxiety. She had a cardiac ablation done [address] Kaye. She states that she has felt completely normal up until today since that procedure. No cough. No diarrhea. No abdominal pain. States she had a catheter placed in her groin which has been healing without any problems. No numbness or weakness. No headache. She states she measured temperature to 102 at home. Has not taken any Tylenol or ibuprofen. ROS: 10 point Review of Systems is negative except as noted in the HPI. PMH: Bipolar disorder, asthma, syncope Social History: No smoking, occasional alcohol, occasional marijuana Family History: non-contributory Physical Exam: Gen: Awake, Alert, No Distress HEENT: Nose: no rhinorrhea Eyes: PERRLA, EOMI Mouth: Moist mucosa Neck: Supple, no JVD Chest: nontender, lungs clear to auscultation Heart: S1, S2 normal, no murmur Abd: Soft, non-tender, no guarding Back: no CVA tenderness, no midline tenderness Ext: no edema, non-tender Skin: no rash Neuro: CN II-XII intact, Sensation grossly intact, Strength 5/5 in bilateral upper and lower extremities - Personal History LMP (Females 10-55): IUD In Place Current Tetanus/Diphtheria Vaccine: Yes Current Tetanus Diphtheria and Acellular Pertussis (TDAP): Yes Tetanus Vaccine Date: 2013 - Medical/Surgical History Hx Asthma: Yes Hx Chronic Respiratory Disease: No Hx Diabetes: No Hx Cardiac Disease: Yes Hx Renal Disease: No Hx Cirrhosis: No Hx Alcoholism: No Hx HIV/AIDS: No Hx Splenectomy or Spleen Trauma: No Other PMH: negative cardiac ablation on 09/11/16, AND 12/20/16. Excercise induced asthma. depression. bipolar. 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 - Social History Smoking Status: Former smoker Constitutional: Initial Vital Signs Temperature (C) 37.5 C 01/03/17 22:12 Heart Rate 114 H 01/03/17 22:12 Respiratory Rate 18 01/03/17 22:12 Blood Pressure 110/65 01/03/17 22:12 O2 Sat (%) 94 01/03/17 22:12 O2 Delivery Mode Room Air Allergies/Adverse Reactions: adhesive Allergy (Verified 01/03/17 22:14) oxycodone HCl [From Percocet] Allergy (Verified 01/03/17 22:14) Penicillins Allergy (Verified 01/03/17 22:14) Home Medications: Medication Instructions Recorded ARIPiprazole [Abilify 2 mg (*)] 8 mg PO HS 01/29/14 buPROPion XL [Wellbutrin Xl] 150 mg PO DAILY 01/29/14 lamoTRIgine [LamICTAL] 75 mg PO HS 07/27/14 LORazepam [Ativan (*)] 0.5 mg PO DAILY PRN 08/15/16 Zaleplon [Sonata] 10 mg PO HS PRN 08/15/16 Acetaminophen [Tylenol 325mg (*)] 325 mg PO DAILY PRN 12/13/16 Ibuprofen [Motrin (*)] 200 mg PO DAILY PRN 12/13/16 Levonorgestrel [Mirena] 1 each IY .[id number] 12/13/16 Medical Decision Making - Diagnostics EKG Interpretation: ECG time 10:25 p.m., sinus tachycardia with a rate of 101, normal axis, normal intervals, no acute ST or T-wave changes. Imaging Results: Imaging Impressions Chest X-Ray 01/03/17 22:36 Impression: Bronchitis. ED Course/Re-evaluation: Patient with general flu-like symptoms which started today. She is status post ablation 14 days ago but has had absolutely no symptoms in the interim. She reported fever of 102 at home. She is not taking any antipyretics and is afebrile here. She is certainly nontoxic in appearance. I do not think her symptomatology is associated with her recent cardiac ablation. There are no murmurs. She has no splinter hemorrhages. Symptoms include nausea vomiting, body aches, general malaise. These there is consistent more with a viral upper respiratory illness. - Data Points Laboratory Results: Laboratory Results 01/03/17 23:06 11/29/17 23:06 01/03/17 01/03/17 01/03/17 23:50 23:06 23:06 WBC 9.25 10^3/uL 10^3/uL (3.80-9.50) RBC 4.90 10^6/uL 10^6/uL (4.18-5.33) Hgb 15.1 g/dL g/dL (12.6-16.3) Hct 43.0 % % (38.0-47.0) MCV 87.8 fL fL (81.5-99.8) MCH 30.8 pg pg (27.9-34.1) MCHC 35.1 g/dL g/dL (32.4-36.7) RDW 11.8 % % (11.5-15.2) Plt Count 253 10^3/uL 10^3/uL (150-400) MPV 9.1 fL fL (8.7-11.7) Neut % (Auto) 88.0 % H % (39.3-74.2) Lymph % (Auto) 6.7 % L % (15.0-45.0) Graham % (Auto) 4.9 % % (4.5-13.0) Eos % (Auto) 0.1 % L % (0.6-7.6) Baso % (Auto) 0.1 % L % (0.3-1.7) Nucleat RBC Rel Count 0.0 % % (0.0-0.2) Absolute Neuts (auto) 8.14 10^3/uL H 10^3/uL (1.70-6.50) Absolute Lymphs (auto) 0.62 10^3/uL L 10^3/uL (1.00-3.00) Absolute Monos (auto) 0.45 10^3/uL 10^3/uL (0.30-0.80) Absolute Eos (auto) 0.01 10^3/uL L 10^3/uL (0.03-0.40) Absolute Basos (auto) 0.01 10^3/uL L 10^3/uL (0.02-0.10) Absolute Nucleated RBC 0.00 10^3/uL 10^3/uL (0-0.01) Immature Gran % 0.2 % % (0.0-1.1) Immature Gran # 0.02 10^3/uL 10^3/uL (0.00-0.10) Sodium 139 mEq/L mEq/L (134-144) Potassium 3.8 mEq/L mEq/L (3.5-5.2) Chloride 101 mEq/L mEq/L (97-110) Carbon Dioxide 22 mEq/l mEq/l (22-31) Anion Gap 16 mEq/L mEq/L (8-16) BUN 17 mg/dL mg/dL (7-23) Creatinine 0.9 mg/dL mg/dL (0.6-1.0) Estimated GFR > 60 Glucose 127 mg/dL H mg/dL (70-100) Calcium 9.1 mg/dL mg/dL (8.5-10.4) Urine Color Urine Appearance Urine pH Ur Specific [place] Urine Protein Urine Ketones Urine Blood Urine Nitrate Urine Bilirubin Urine Urobilinogen Ur Leukocyte Esterase Urine RBC Urine WBC Ur Epithelial Cells Urine Mucus Urine Glucose Nasal Influenza A PCR Pending Nasal Influenza B PCR Pending 01/03/17 22:47 WBC RBC Hgb Hct MCV MCH MCHC RDW Plt Count MPV Neut % (Auto) Lymph % (Auto) Graham % (Auto) Eos % (Auto) Baso % (Auto) Nucleat RBC Rel Count Absolute Neuts (auto) Absolute Lymphs (auto) Absolute Monos (auto) Absolute Eos (auto) Absolute Basos (auto) Absolute Nucleated RBC Immature Gran % Immature Gran # Sodium Potassium Chloride Carbon Dioxide Anion Gap BUN Creatinine Estimated GFR Glucose Calcium Urine Color YELLOW Urine Appearance CLEAR Urine pH 6.0 (5.0-7.5) Ur Specific [place] 1.034 H (1.002-1.030) Urine Protein 1+ H (NEGATIVE) Urine Ketones NEGATIVE (NEGATIVE) Urine Blood NEGATIVE (NEGATIVE) Urine Nitrate NEGATIVE (NEGATIVE) Urine Bilirubin NEGATIVE (NEGATIVE) Urine Urobilinogen 4.0 EU H EU (0.2-1.0) Ur Leukocyte Esterase NEGATIVE (NEGATIVE) Urine RBC 1-3 /hpf /hpf (0-3) Urine WBC 1-3 /hpf /hpf (0-3) Ur Epithelial Cells TRACE /lpf /lpf (NONE-1+) Urine Mucus TRACE /lpf /lpf (NONE-1+) Urine Glucose NEGATIVE (NEGATIVE) Nasal Influenza A PCR Nasal Influenza B PCR Medications Given: Discontinued Medications Acetaminophen (Tylenol) 1,000 mg PO EDNOW ONE Stop: 01/03/17 22:42 Last Admin: 01/03/17 23:09 Dose: 1,000 mg Sodium Chloride (Ns) 1,000 mls @ 0 mls/hr IV ONCE ONE; Wide Open PRN Reason: Protocol Stop: 01/03/17 22:42 Last Admin: 01/03/17 23:07 Dose: 1,000 mls Ondansetron HCl (Zofran) 4 mg IVP EDNOW ONE Stop: 01/03/17 22:42 Last Admin: 01/03/17 23:09 Dose: 4 mg Departure - Departure Disposition: Home, Routine, Self-Care Clinical Impression: Viral illness Condition: Good Instructions: Viral Syndrome (ED), Acute Nausea and Vomiting (ED), Ondansetron (By mouth) Additional Instructions: He may take ondansetron as needed for nausea and vomiting. Make sure to drink plenty of fluids and get rest. Follow up with primary care physician in 2-3 days if symptoms are not improving. Return to the emergency department for uncontrolled fevers or chills, worsening fatigue, nausea, vomiting, or any other concerns. Referrals: Maya Craft MD [Primary Care Provider] - As per Instructions
[2017-01-03] MEDS ORDERED: NS 1,000 ML IV ONE (22:41)
[2017-01-03] MEDS ORDERED: ACETAMINOPHEN 500 MG TAB PO ONE (22:41)
[2017-01-03] MEDS ORDERED: ONDANSETRON 4 MG/2 ML VIAL IVP ONE (22:41)
[2017-01-03 23:07] LABS: COLOR YELLOW; LEUKOCYTE ESTERASE,URINE NEGATIVE (NEGATIVE); NITRITE,URINE NEGATIVE (NEGATIVE)
[2017-01-03 23:09] LABS: MUCUS TRACE /lpf (NONE-1+)
[2017-01-03 23:11] LABS: % IMMATURE GRANULYOCYTES 0.2 % (0.0-1.1); ABSOLUTE IMMATURE GRANULOCYTES 0.02 10^3/uL (0.00-0.10); ADD DIFF? NO; ADD MORPH? NO; ADD SCAN? NO; ATYPICAL LYMPHOCYTE FLAG 10 (0-99); FRAGMENT RBC FLAG 0 (0-99); HEMOGLOBIN 15.1 g/dL (12.6-16.3); LEFT SHIFT FLG 0 (0-99); LIPEMIA HEMOLYSIS FLAG 90 (0-99); MEAN CELL HEMOGLOBIN 30.8 pg (27.9-34.1); MEAN CELL HEMOGLOBIN CONCENTR. 35.1 g/dL (32.4-36.7); MEAN CELL VOLUME 87.8 fL (81.5-99.8); MEAN PLATELET VOLUME 9.1 fL (8.7-11.7); PLATELET CLUMPS FLAG 0 (0-99); PLATELET COUNT 253 10^3/uL (150-400); RED CELL DISTRIBUTION WIDTH 11.8 % (11.5-15.2)
[2017-01-03 23:31] LABS: ANION GAP 16 mEq/L (8-16); CALCIUM 9.1 mg/dL (8.5-10.4); CARBON DIOXIDE 22 mEq/l (22-31); CHLORIDE 101 mEq/L (97-110); CREATININE 0.9 mg/dL (0.6-1.0); GLOMERULAR FILTRATION RATE > 60; GLUCOSE 127 mg/dL (70-100); POTASSIUM 3.8 mEq/L (3.5-5.2); SODIUM 139 mEq/L (134-144)
[2017-01-04] MEDS ORDERED: ONDANSETRON 4MG PREPACK#2 BTL TAKEHOME ONE ×2 (00:23→00:24)
[2017-01-04 00:37] VITALS: BP 100/64; PULSE 84; TEMP 99.7
== END 2017-01-04 00:36 | disposition home or self-care (01) ==
DX: B34.9 Viral infection, unspecified (principal); J45.909 Unspecified asthma, uncomplicated; E86.9 Volume depletion, unspecified; Z87.891 Personal history of nicotine dependence
CPT/HCPCS: 96374; J2405

== ENCOUNTER 2017-05-30 21:00 | Emergency (ER) | payer OTHER ==
[2017-05-30] MEDS ORDERED: ONDANSETRON DISINTEGRATING 4 MG TAB PO ONE (21:27)
--- NOTE | 2017-05-30 21:28 | EDPHY ---
H & P Stated Complaint: Painful Urination, Left Flank Pain Time Seen by Provider: 05/30/17 21:27 HPI/ROS: HPI: This is a 21-year-old female who presents with Chief Complaint: Painful urination, left flank pain Location: Quality: Dysuria Duration: 2 days Signs and Symptoms: no fever, + nausea, no vomiting, no hematemesis, no blood in stool, no abdominal bloating, no diarrhea, + lower back pain, + urinary symptoms, no vaginal bleeding/discharge, no indigestion, no chest pain, no shortness of breath Timing: Worsening Severity: Moderate Context: Patient presents with complaints of dysuria x2 days accompanied by left flank pain that started this afternoon. Patient reports that she has burning with urination and frequency. Denies fever. She does have some lower back pain worse on the left; denies any radiation. She was seen by her primary care provider today and had an influenza swab as well as urinalysis. Patient is unsure of the results. She was given prescription for Zofran 4 mg ODT for which she took approximately 4 hr prior to arrival. She reports transient relief of her nausea. She denies any vomiting/diarrhea. LMP 2-3 weeks ago. Reports eating and drinking normally. No history of ovarian cyst/kidney stones. Denies vaginal bleeding or discharge. 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 He at [facility]. Denies concern for STDs. Has not had a bowel movement in 4 days. Modifying Factors: See above Comment: ROS: see HPI Constitutional: No fever, no chills, no weight loss Eyes: No blurred vision Respiratory: No shortness of breath, no cough Cardiovascular: No chest pain, no palpitations Gastrointestinal: + nausea, no vomiting, no diarrhea, no hematemesis, no blood in stool Genitourinary: No dysuria, no blood in urine Extremities: No myalgias, no edema Neurologic: No weakness, no numbness Skin: No rashes, no petechiae Hematologic: No bruising, no bleeding MEDICAL/SURGICAL/SOCIAL HISTORY: Medical/surgical history: negative cardiac ablation on 09/11/16, AND 12/20/16, Exercise induced asthma, depression, bipolar 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 Student. Family history noncontributory. CONSTITUTIONAL: Extremely well-appearing young adult white female, awake and alert, no obvious distress HEENT: Atraumatic and normocephalic, PERRL, EOMI. Nares patent; no rhinorrhea; no nasal mucosal edema. Tympanic membranes clear. Oropharynx clear, no exudate and moist pink mucosa. Airway patent. No lymphadenopathy. No meningismus. Cardiovascular: Normal S1/S2, regular rate, regular rhythm, without murmur rub or gallop. PULMONARY/CHEST: Symmetrical and nontender. Clear to auscultation bilaterally. Good air movement. No accessory muscle usage. ABDOMEN: Soft, nondistended, mild left lower quadrant and left flank tenderness , no rebound, no guarding, no peritoneal signs, no masses or organomegaly. No CVAT. EXTREMITIES: 2/2 pulses, strength 5/5, no deformities, no clubbing, no cyanosis or edema. NEUROLOGICAL: no focal neuro deficits. GCS 15. SKIN: Warm and dry, no erythema. no rash. Good capillary refill. Source: Patient Exam Limitations: No limitations - Personal History LMP (Females 10-55): 22-28 Days Ago Current Tetanus Diphtheria and Acellular Pertussis (TDAP): Yes Tetanus Vaccine Date: 2013 - Medical/Surgical History Hx Asthma: Yes Hx Chronic Respiratory Disease: No Hx Diabetes: No Hx Cardiac Disease: Yes Hx Renal Disease: No Hx Cirrhosis: No Hx Alcoholism: No Hx HIV/AIDS: No Hx Splenectomy or Spleen Trauma: No Other PMH: negative cardiac ablation on 09/11/16, AND 12/20/16. Excercise induced asthma. depression. bipolar. 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 - Social History Smoking Status: Former smoker Constitutional: Initial Vital Signs Temperature (C) 37.8 C 05/30/17 21:04 Heart Rate 110 H 05/30/17 21:04 Respiratory Rate 18 05/30/17 21:04 Blood Pressure 100/64 05/30/17 21:04 O2 Sat (%) 94 05/30/17 21:04 O2 Delivery Mode Room Air Allergies/Adverse Reactions: adhesive Allergy (Verified 01/03/17 22:14) oxycodone HCl [From Percocet] Allergy (Verified 01/03/17 22:14) Penicillins Allergy (Verified 01/03/17 22:14) Home Medications: Medication Instructions Recorded ARIPiprazole [Abilify 2 mg (*)] 8 mg PO HS 01/29/14 buPROPion XL [Wellbutrin Xl] 150 mg PO DAILY 01/29/14 lamoTRIgine [LamICTAL] 75 mg PO HS 07/27/14 LORazepam [Ativan (*)] 0.5 mg PO DAILY PRN 08/15/16 Zaleplon [Sonata] 10 mg PO HS PRN 08/15/16 Acetaminophen [Tylenol 325mg (*)] 325 mg PO DAILY PRN 12/13/16 Ibuprofen [Motrin (*)] 200 mg PO DAILY PRN 12/13/16 Levonorgestrel [Mirena] 1 each IY [id number] 12/13/16 Medical Decision Making - Diagnostics Imaging Results: Imaging Impressions Abdomen/Pelvis CT 05/30/17 22:14 Impression: 1. Negative non-contrast CT examination of the urinary system. 2. Multiple appendicoliths without CT evidence of acute appendicitis. 3. Left ovarian follicle cysts. Results called to Flaquita Villegas PA-C, at 10:40 PM. Attention: This CT examination is specifically designed to evaluate patients who are clinically suspected of having acute obstructive uropathy. This examination does not use radiographic contrast, and as such, provides only a limited evaluation of the abdomen, pelvis and retroperitoneum. If there is further clinical suspicion for pathological conditions other than obstructive uropathy, a complete CT evaluation of the abdomen and pelvis utilizing intravenous, oral, and rectal contrast should be considered. ED Course/Re-evaluation: Labs, urinalysis, IV fluids, IV medication, CT abdomen and pelvis scan without contrast ordered Given 1 L normal saline, IV Toradol, IV Zofran Vital signs reviewed upon arrival. Mild tachycardia noted with heart rate of 110. 2226: Labs reviewed. No signs of leukocytosis/anemia/JAZZY/elevated LFTs/ electrolyte imbalance. Left shift noted. Urinalysis shows no signs of infection. No hematuria. 2239: Called by radiologist who advised that CT abdomen and pelvis scan shows normal kidneys and ureters, multiple calcified appendicolith but no signs of appendicitis. 2.8 cm ovarian cyst on the left. No free fluid. 2244: Reassessed patient. Abdomen soft and nontender. Discussed obtaining pelvic ultrasound to further differentiate ovarian cyst but patient has no more pain and prefers to follow up with OBGYN which I feel is reasonable. Reports that she has not had a bowel movement in 4 days and will go home and take milk of magnesia. Passed p.o. Trial prior to discharge. This patient was seen under the supervision of my secondary supervising physician. I evaluated care for this patient independently. Differential Diagnosis: Flank pain including but not limited to musculoskeletal causes, kidney stone, pyelonephritis, shingles, and intra-abdominal causes such as diverticulitis and appendicitis. - Data Points Laboratory Results: Laboratory Results 05/30/17 21:36 05/30/17 21:36 05/30/17 05/30/17 05/30/17 21:43 21:36 21:36 WBC RBC Hgb Hct MCV MCH MCHC RDW Plt Count MPV Neut % (Auto) Lymph % (Auto) [place] % (Auto) Eos % (Auto) Baso % (Auto) Nucleat RBC Rel Count Absolute Neuts (auto) Absolute Lymphs (auto) Absolute Monos (auto) Absolute Eos (auto) Absolute Basos (auto) Absolute Nucleated RBC Immature Gran % Immature Gran # Sodium 140 mEq/L mEq/L (135-145) Potassium 4.4 mEq/L mEq/L (3.5-5.2) Chloride 109 mEq/L mEq/L (97-110) Carbon Dioxide 16 mEq/l L mEq/l (22-31) Anion Gap 15 mEq/L mEq/L (8-16) BUN 12 mg/dL mg/dL (7-23) Creatinine 0.8 mg/dL mg/dL (0.6-1.0) Estimated GFR > 60 Glucose 104 mg/dL H mg/dL (70-100) Calcium 9.1 mg/dL mg/dL (8.5-10.4) Total Bilirubin 1.4 mg/dL mg/dL (0.1-1.4) Conjugated Bilirubin 0.5 mg/dL mg/dL (0.0-0.5) Unconjugated Bilirubin 0.9 mg/dL mg/dL (0.0-1.1) AST 36 IU/L IU/L (14-46) ALT 12 IU/L IU/L (9-52) Alkaline Phosphatase 61 IU/L IU/L (38-126) Total Protein 7.9 g/dL g/dL (6.3-8.2) Albumin 4.2 g/dL g/dL (3.5-5.0) Beta HCG, Qual NEGATIVE Urine Color Urine Appearance Urine pH Ur Specific [place] Urine Protein Urine Ketones Urine Blood Urine Nitrate Urine Bilirubin Urine Urobilinogen Ur Leukocyte Esterase Urine Glucose Urine Test NEGATIVE 05/30/17 05/30/17 21:36 21:35 WBC 8.19 10^3/uL 10^3/uL (3.80-9.50) RBC 5.01 10^6/uL 10^6/uL (4.18-5.33) Hgb 15.2 g/dL g/dL (12.6-16.3) Hct 46.4 % % (38.0-47.0) MCV 92.6 fL fL (81.5-99.8) MCH 30.3 pg pg (27.9-34.1) MCHC 32.8 g/dL g/dL (32.4-36.7) RDW 12.0 % % (11.5-15.2) Plt Count 200 10^3/uL 10^3/uL (150-400) MPV 10.0 fL fL (8.7-11.7) Neut % (Auto) 81.1 % H % (39.3-74.2) Lymph % (Auto) 11.0 % L % (15.0-45.0) [place] % (Auto) 7.1 % % (4.5-13.0) Eos % (Auto) 0.1 % L % (0.6-7.6) Baso % (Auto) 0.2 % L % (0.3-1.7) Nucleat RBC Rel Count 0.0 % % (0.0-0.2) Absolute Neuts (auto) 6.64 10^3/uL H 10^3/uL (1.70-6.50) Absolute Lymphs (auto) 0.90 10^3/uL L 10^3/uL (1.00-3.00) Absolute Monos (auto) 0.58 10^3/uL 10^3/uL (0.30-0.80) Absolute Eos (auto) 0.01 10^3/uL L 10^3/uL (0.03-0.40) Absolute Basos (auto) 0.02 10^3/uL 10^3/uL (0.02-0.10) Absolute Nucleated RBC 0.00 10^3/uL 10^3/uL (0-0.01) Immature Gran % 0.5 % % (0.0-1.1) Immature Gran # 0.04 10^3/uL 10^3/uL (0.00-0.10) Sodium Potassium Chloride Carbon Dioxide Anion Gap BUN Creatinine Estimated GFR Glucose Calcium Total Bilirubin Conjugated Bilirubin Unconjugated Bilirubin AST ALT Alkaline Phosphatase Total Protein Albumin Beta HCG, Qual Urine Color YELLOW Urine Appearance CLEAR Urine pH 8.0 H (5.0-7.5) Ur Specific [place] 1.025 (1.002-1.030) Urine Protein NEGATIVE (NEGATIVE) Urine Ketones NEGATIVE (NEGATIVE) Urine Blood NEGATIVE (NEGATIVE) Urine Nitrate NEGATIVE (NEGATIVE) Urine Bilirubin NEGATIVE (NEGATIVE) Urine Urobilinogen 4.0 EU H EU (0.2-1.0) Ur Leukocyte Esterase NEGATIVE (NEGATIVE) Urine Glucose NEGATIVE (NEGATIVE) Urine Test Medications Given: Discontinued Medications Sodium Chloride (Ns) 1,000 mls @ 0 mls/hr IV ONCE ONE PRN Reason: Wide Open Stop: 05/30/17 21:38 Last Admin: 05/30/17 21:37 Dose: 1,000 mls Sodium Chloride (Ns) 1,000 mls @ 0 mls/hr IV ONCE ONE; Wide Open PRN Reason: Protocol Stop: 05/30/17 21:42 Last Admin: 05/30/17 21:49 Dose: 1,000 mls Sodium Chloride (Ns) 1,000 mls @ 0 mls/hr IV ONCE ONE; Wide Open PRN Reason: Protocol Stop: 05/30/17 21:42 Last Admin: 05/30/17 21:50 Dose: Not Given Ketorolac Tromethamine (Toradol) 30 mg IVP EDNOW ONE Stop: 05/30/17 21:42 Last Admin: 05/30/17 21:46 Dose: 30 mg Ondansetron HCl (Zofran Odt) 4 mg PO EDNOW ONE Stop: 05/30/17 21:28 Last Admin: 05/30/17 21:42 Dose: Not Given Ondansetron HCl (Zofran) 4 mg IVP EDNOW ONE Stop: 05/30/17 21:43 Last Admin: 05/30/17 21:45 Dose: 4 mg Departure - Departure Disposition: Home, Routine, Self-Care Clinical Impression: Cyst of left ovary, Appendicolith Constipation Qualifiers: Constipation type: unspecified constipation type Qualified Code(s): K59.00 - Constipation, unspecified Condition: Good Instructions: Ovarian Cyst (ED), Constipation (ED), High Fiber Diet (ED) Additional Instructions: Consume a minimum of 8-10 glasses of water or electrolyte fluid replacement drinks that include Gatorade, Powerade, Pedialyte. Eat a bland diet for the next 48 hours and then slowly advance as tolerated. Take milk of magnesia or MiraLax daily as needed for constipation. Take Zofran 1 tab every 4 hours as needed for nausea, vomiting. Apply heating pad to your lower abdomen as needed for abdominal discomfort. Please follow up with your OBGYN regarding your left ovarian cyst and yearly gynecological exam. Referrals: Maya Craft MD [Primary Care Provider] - As per Instructions [facility] [Provider Group] - 3-4 days, if not improved
[2017-05-30] MEDS ORDERED: NS 1,000 ML IV ONE ×3 (21:37→21:41)
[2017-05-30] MEDS ORDERED: KETOROLAC 30 MG/1 ML SDV IVP ONE (21:41)
[2017-05-30] MEDS ORDERED: ONDANSETRON 4 MG/2 ML VIAL IVP ONE (21:42)
[2017-05-30] MEDS ORDERED: ONDANSETRON 4 MG/2 ML VIAL ONE (21:43)
[2017-05-30 21:48] LABS: PLATELET COUNT 200 10^3/uL (150-400)
[2017-05-30 22:58] VITALS: BP 94/51
== END 2017-05-30 22:59 | disposition home or self-care (01) ==
DX: K59.00 Constipation, unspecified (principal); N83.202 Unspecified ovarian cyst, left side; E86.9 Volume depletion, unspecified; J45.909 Unspecified asthma, uncomplicated; K38.1 Appendicular concretions; Z87.891 Personal history of nicotine dependence
CPT/HCPCS: 96374; J1885; J2405

== ENCOUNTER 2018-03-14 02:48 | Emergency (ER) | payer OTHER ==
[2018-03-14] MEDS ORDERED: ONDANSETRON 4 MG/2 ML VIAL ONE (03:03)
[2018-03-14] MEDS ORDERED: ONDANSETRON 4 MG/2 ML VIAL IVP ONE (03:06)
[2018-03-14] MEDS ORDERED: NS 1,000 ML IV ONE (03:06)
[2018-03-14] MEDS ORDERED: KETOROLAC 15 MG/1 ML SDV IVP ONE (03:06)
--- NOTE | 2018-03-14 03:09 | EDPHY ---
H & P Stated Complaint: lower abd pain x1hour Time Seen by Provider: 03/14/18 02:54 HPI/ROS: Chief Complaint: Pelvic pain HPI: 22-year-old woman had a sudden onset of severe lower pelvic cramping pain about 1 hr ago. She is 5 days status post donating eggs for fertility clinic in [place]. She states she donated 9 a eggs. Patient states she had some cramping for the 1st 24 hr but symptoms have gone away and she has been pain- free for the last 4 days. Some nausea but no vomiting. Pain is generalized and lower pelvis. No vaginal discharge or bleeding. No fevers or chills. Has had some mild constipation. ROS: 10 systems were reviewed and were negative except those elements noted in the HPI. PMH: Denies Social History: No smoking, no alcohol, no recreational drug use Family History: non-contributory Physical Exam: Gen: Awake, Alert, uncomfortable appearing HEENT: Nose: no rhinorrhea Eyes: PERRLA, EOMI Mouth: Moist mucosa Neck: Supple, no JVD Chest: nontender, lungs clear to auscultation Heart: S1, S2 normal, no murmur Abd: Soft, moderate diffuse pelvic tenderness bilaterally Back: no CVA tenderness, no midline tenderness Ext: no edema, non-tender Skin: no rash Neuro: CN II-XII intact, Sensation grossly intact, Strength 5/5 in bilateral upper and lower extremities - Personal History LMP (Females 10-55): 15-21 Days Ago Current Tetanus/Diphtheria Vaccine: Yes Tetanus Vaccine Date: 2013 - Medical/Surgical History Hx Asthma: Yes Hx Chronic Respiratory Disease: No Hx Diabetes: No Hx Cardiac Disease: Yes Hx Renal Disease: No Hx Cirrhosis: No Hx Alcoholism: No Hx HIV/AIDS: No Hx Splenectomy or Spleen Trauma: No Other PMH: negative cardiac ablation on 09/11/16, AND 12/20/16. Excercise induced asthma. depression. bipolar. 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 - Social History Smoking Status: Former smoker Constitutional: Initial Vital Signs Temperature (C) 36.5 C 03/14/18 02:49 Heart Rate 92 03/14/18 02:49 Respiratory Rate 20 03/14/18 02:49 Blood Pressure 118/83 H 03/14/18 02:49 O2 Sat (%) 96 03/14/18 02:49 O2 Delivery Mode Room Air Allergies/Adverse Reactions: adhesive Allergy (Verified 03/14/18 02:52) oxycodone HCl [From Percocet] Allergy (Verified 03/14/18 02:52) Penicillins Allergy (Verified 03/14/18 02:52) Home Medications: Medication Instructions Recorded LORazepam [Ativan (*)] 0.5 mg PO DAILY PRN 08/15/16 Zaleplon [Sonata] 10 mg PO HS PRN 08/15/16 Medical Decision Making - Diagnostics Imaging Results: Pelvic ultrasound is an unremarkable examination. Multiple ovarian follicles bilaterally. Minimal free fluid within the cul-de-sac. Study and interpreted by Dr. Elliott, direct Radiology. ED Course/Re-evaluation: Patient is significantly improved after IV Toradol. Abdomen is soft and benign. Laboratory evaluations are unremarkable. Urinalysis is negative. No white count. Ultrasound is negative. Symptoms consistent likely with ruptured follicle. No findings suggestive acute torsion or infection or bleeding. Will discharge with follow-up with her OBGYN. - Data Points Laboratory Results: Laboratory Results 03/14/18 03:05 03/14/18 03:05 03/14/18 03/14/18 03/14/18 03:05 03:05 03:05 WBC 11.81 10^3/uL H 10^3/uL (3.80-9.50) RBC 4.89 10^6/uL 10^6/uL (4.18-5.33) Hgb 14.8 g/dL g/dL (12.6-16.3) Hct 43.8 % % (38.0-47.0) MCV 89.6 fL fL (81.5-99.8) MCH 30.3 pg pg (27.9-34.1) MCHC 33.8 g/dL g/dL (32.4-36.7) RDW 11.8 % % (11.5-15.2) Plt Count 289 10^3/uL 10^3/uL (150-400) MPV 9.7 fL fL (8.7-11.7) Neut % (Auto) 59.4 % % (39.3-74.2) Lymph % (Auto) 31.4 % % (15.0-45.0) [place] % (Auto) 7.3 % % (4.5-13.0) Eos % (Auto) 1.2 % % (0.6-7.6) Baso % (Auto) 0.4 % % (0.3-1.7) Nucleat RBC Rel Count 0.0 % % (0.0-0.2) Absolute Neuts (auto) 7.02 10^3/uL H 10^3/uL (1.70-6.50) Absolute Lymphs (auto) 3.71 10^3/uL H 10^3/uL (1.00-3.00) Absolute Monos (auto) 0.86 10^3/uL H 10^3/uL (0.30-0.80) Absolute Eos (auto) 0.14 10^3/uL 10^3/uL (0.03-0.40) Absolute Basos (auto) 0.05 10^3/uL 10^3/uL (0.02-0.10) Absolute Nucleated RBC 0.00 10^3/uL 10^3/uL (0-0.01) Immature Gran % 0.3 % % (0.0-1.1) Immature Gran # 0.03 10^3/uL 10^3/uL (0.00-0.10) Sodium 138 mEq/L mEq/L (135-145) Potassium 3.9 mEq/L mEq/L (3.5-5.2) Chloride 109 mEq/L mEq/L (97-110) Carbon Dioxide 19 mEq/l L mEq/l (22-31) Anion Gap 10 mEq/L mEq/L (6-14) BUN 14 mg/dL mg/dL (7-23) Creatinine 0.7 mg/dL mg/dL (0.6-1.0) Estimated GFR > 60 Glucose 89 mg/dL mg/dL (70-100) Calcium 9.5 mg/dL mg/dL (8.5-10.4) Urine Color YELLOW Urine Appearance CLEAR Urine pH 5.0 (5.0-7.5) Ur Specific [place] 1.028 (1.002-1.030) Urine Protein NEGATIVE (NEGATIVE) Urine Ketones NEGATIVE (NEGATIVE) Urine Blood NEGATIVE (NEGATIVE) Urine Nitrate NEGATIVE (NEGATIVE) Urine Bilirubin NEGATIVE (NEGATIVE) Urine Urobilinogen NEGATIVE EU EU (0.2-1.0) Ur Leukocyte Esterase NEGATIVE (NEGATIVE) Urine Glucose NEGATIVE (NEGATIVE) Medications Given: Discontinued Medications Sodium Chloride (Ns) 1,000 mls @ 0 mls/hr IV ONCE ONE; Wide Open PRN Reason: Protocol Stop: 03/14/18 03:07 Last Admin: 03/14/18 03:11 Dose: 1,000 mls Ketorolac Tromethamine (Toradol) 15 mg IVP EDNOW ONE Stop: 03/14/18 03:07 Last Admin: 03/14/18 03:14 Dose: 15 mg Ondansetron HCl (Zofran) 4 mg IVP EDNOW ONE Stop: 03/14/18 03:07 Last Admin: 03/14/18 03:11 Dose: 4 mg Departure - Departure Disposition: Home, Routine, Self-Care Clinical Impression: Pelvic pain Condition: Fair Instructions: Pelvic Pain in Women (ED) Additional Instructions: Take ibuprofen, 600 mg every 8 hr. You may alternate with acetaminophen, 1000 mg every 8 hr. Follow up with your OBGYN in 3-4 days for further evaluation. Return to the emergency department for worsening pain, fevers or chills, uncontrolled nausea vomiting, or any other concerns. Referrals: Anju Ruiz MD [Primary Care Provider] - As per Instructions
[2018-03-14 03:23] LABS: PLATELET COUNT 289 10^3/uL (150-400)
[2018-03-14 04:25] VITALS: BP 96/59
== END 2018-03-14 04:24 | disposition home or self-care (01) ==
DX: R10.2 Pelvic and perineal pain (principal); E86.9 Volume depletion, unspecified
CPT/HCPCS: 96374; J1885; J2405

== ENCOUNTER 2018-07-03 12:09 | Day surgery (SDC) | payer OTHER ==
[2018-07-03] MEDS ORDERED: LIDOCAINE 1% 5 ML SDV SC ONE (12:16)
--- NOTE | 2018-07-03 12:32 | PDGENHP ---
History & Physical Chief Complaint: ILR in situ History of Present Illness: ILR in situ, battery depletion, presenting for removal Relevant Physical Exam: A+Ox4, RR/NR, no MRG, CTAB, no focal deficits Cardiorespiratory Assessment: ILR battery depletion -> ILR removal
[2018-07-03] MEDS ORDERED: LIDOCAINE 1% 5 ML SDV ONE (12:33)
[2018-07-03] MEDS ORDERED: fentaNYL 100 MCG/2 ML INJ ONE ×2 (12:33→12:57)
[2018-07-03] MEDS ORDERED: MIDAZOLAM 2 MG/2 ML VIAL ONE ×2 (12:33→12:58)
--- NOTE | 2018-07-03 12:58 | PDANEPAE ---
ANE History of Present Illness ILR battery depletion ANE Past Medical History - Cardiovascular History Hx Hypertension: No Hx Arrhythmias: No Hx Coronary Artery / Peripheral Vascular Disease: No Hx CHF / Valvular Disease: No - Pulmonary History Hx COPD: No Hx Asthma/Reactive Airway Disease: No Hx Recent Upper Respiratory Infection: No Hx Oxygen in Use at Home: No Hx Sleep Apnea: No Pulmonary History Comment: COLD PART April. EXRCISE INDUCED ASTHMA NONE SINCE MOVING HER FROM [place] 8 MONTHS. - Neurologic History Hx Cerebrovascular Accident: No Hx Seizures: No Hx Dementia: No - Endocrine History Hx Diabetes: No Endocrine History Comment: NATHAN - Renal History Hx Renal Disorders: No - Liver History Hx Hepatic Disorders: No - Neurological & Psychiatric Hx Hx Neurological and Psychiatric Disorders: Yes Neurological / Psychiatric History Comment: BIPOLAR/DEPRESSION. HEADACHES WITH MENSES. CONCUSSION 2009 - Cancer History Hx Cancer: No - Congenital Disorder History Hx Congenital Disorders: No - GI History Hx Gastrointestinal Disorders: No - Chronic Pain History Chronic Pain: No - Surgical History Prior Surgeries: DENTAL EXT IN OFFICE BECAME COMBATIVE ANE Review of Systems Review of Systems: ANE Patient History - Allergies Allergies/Adverse Reactions: adhesive Allergy (Verified 03/14/18 02:52) oxycodone HCl [From Percocet] Allergy (Verified 03/14/18 02:52) Penicillins Allergy (Verified 03/14/18 02:52) - Home Medications Home Medications: LORazepam [Ativan (*)] 0.5 mg PO DAILY PRN 08/15/16 [Last Taken 12/18/16] Zaleplon [Sonata] 10 mg PO HS PRN 08/15/16 [Last Taken 12/13/16] - Smoking Hx Smoking Status: Former smoker ANE Physical Exam - Airway Mallampati Score: Class 2 Mouth exam: normal dental/mouth exam - Pulmonary Pulmonary: no respiratory distress - Cardiovascular Cardiovascular: regular rate and rhythym, no murmur, rub, or gallop ANE Anesthesia Plan Anesthesia Plan: MAC
--- NOTE | 2018-07-03 13:36 | EPPROC ---
Electrophysiology Procedure Note: Date: 07/03/18 Finance Business Partner: Ozzie Noel MD Procedures: Remove ILR - 06303 Monitored IV sedation - 30 minutes - [id number] + [id number] Indications: ILR battery depletion Techniques: Following informed consent,t he patient was brought to the EP lab in a fasting nonsedated state, in sinus rhythm. IV sedation was administered under the direct supervision of the physician starting at 1256 with continuous monitoring of O2/HR/BP until 1326 (30minutes) - a total of 2mg IV midazolam and 100mcg IV fentanyl was given. The anterior chest was prepped and draped in usual sterile fashion. 1% lidocaine was infiltrated over the chronic ILR implant site. Cutdown was performed to the capsule and the device was taken out of pocket. The incision was closed with resorbable suture and dressed with steristrips. The patient tolerated the procedure well. EBL: minimal Complications: none Assessment: Successful removal of ILR Plan: keep incision dry for 2 days wound check in 1 week Patient Problems: Problems Problem Status Onset Syncope Acute
== END 2018-07-03 14:30 | disposition home or self-care (01) ==
LOC: FCATH 12:09
PROVIDERS: ATTEND Internal Medicine Cardiovascular Disease
PROC: 0JPT02Z Removal of Monitoring Device from Trunk Subcutaneous Tissue and Fascia, Open Approach (ICD-10-PCS; principal; 2018-07-03)
DX: Z45.010 Encounter for checking and testing of cardiac pacemaker pulse generator [battery] (principal)
CPT/HCPCS: J2250; J3010